=== PATIENT | male | born 1975 | race Caucasian/White ===

== ENCOUNTER 2016-09-02 22:01 | Emergency (ER) | payer OTHER ==
[~2016-09-02] VITALS: Ht 177.8 cm; Wt 103.5 kg
[~2016-09-02 22:01] MED LIST: PSEU120T11 PO
[2016-09-02 22:04] VITALS: Ht 177.8 cm; Wt 103.5 kg
[2016-09-02] MEDS ORDERED: AZIT500T5 PO (23:54)
[2016-09-03] MEDS ORDERED: AZITHROMYCIN 250 MG TAB PO ONE
--- NOTE | 2016-09-03 00:01 | ERD ---
ER Documentation Chief Complaint Date/Time DATE: 09/02/16 TIME: 23:57 Chief Complaint right ear ache x 2 days HPI This is a 40-year-old male that presents to the ER with right ear pain for the last 2 days. Patient states that pain is dull and constant it is nonradiating. Patient denies any discharge from his ear. He denies any fevers or chills. Patient has a history of recurrent ear infections and has seen a specialist for this. She has not had an ear infection for the last 8 months. Patient states he traveled recently from [place] to [place] and because of weather changes he began to feel ear pain. ROS 12 point review of systems was done, all negative except per HPI. Medications Home Meds Active Scripts Azithromycin* (Azithromycin*) 500 Mg Tablet, 500 MG PO QHS for 4 Days, TAB Prov:HARINI RANDLE 09/02/16 Pseudoephedrine Hcl (Sudafe 12-Hour) 120 Mg Tablet.er, 120 MG PO BID Y for CONGESTION, #20 TAB.SA Prov:MARIA DOLORES KELLER PA-C 12/05/15 Allergies Allergies: Coded Allergies: Penicillins (Verified Allergy, 09/03/16) PMhx/Soc History of Surgery: Yes (left acl sx, torn left pectorus muscle sx) Anesthesia Reaction: No Hx Neurological Disorder: No Hx Respiratory Disorders: No Hx Cardiac Disorders: No Hx Psychiatric Problems: No Hx Miscellaneous Medical Probl: Yes (meningitis) Hx Alcohol Use: Yes (socially) Hx Substance Use: No Hx Tobacco Use: No Smoking Status: Never smoker Physical Exam Vitals Vital Signs Date Time Temp Pulse Resp B/P Pulse Ox O2 Delivery O2 Flow Rate FiO2 09/02/16 22:04 97.3 84 20 137/66 100 Physical Exam GENERAL: The patient is well developed and appropriate for usual state of health , in no apparent distress. HEENT: Atraumatic. Conjunctivae are pink. Pupils equal, round, and reactive to light. Extraocular muscles are grossly intact. Right erythematous tympanic membrane no mastoid tenderness no discharge from canal.. The oropharynx is clear with no erythema or exudates. NECK: C-spine is soft and supple. There is no cervical lymphadenopathy. CHEST: Clear to auscultation bilaterally. There are no rales, wheezes or rhonchi. HEART: Regular rate and rhythm. No murmurs, clicks, rubs or gallops. NEURO: Alert and oriented. Results 24 hrs Current Medications Medications (Trade) Dose Ordered Sig/Amadou Route PRN Reason Start Time Stop Time Status Last Admin Dose Admin Azithromycin (Zithromax) 1,000 mg ONCE ONCE PO 09/03/16 00:00 09/03/16 00:01 DC 09/02/16 23:55 Procedures/MDM This is a 40-year-old male presents to the ER with right ear pain for the last 2 days. Patient does have otitis media. Patient is allergic to penicillins will be sent home with azithromycin. He was given the first dose here and will be sent home with 4 days worth of the antibiotic. He is afebrile and well- appearing. Patient is to follow-up with his primary care doctor within 1-2 days or return to ER sooner if symptoms worsen. My medical decision making was discussed with the patient he understands and agrees with plan. Departure Diagnosis: Primary Impression: Otitis media Condition: Stable Patient Instructions: Otitis Media, Abx Tx (Adult) Additional Instructions: Call your primary care doctor TOMORROW for an appointment during the next 1-2 days.See the doctor sooner or return here if your condition worsens before your appointment time. HARINI RANDLE Sep 03, 2016 00:01
[2016-09-03 00:26] VITALS: BP 125/84; PULSE 70; RESP 20; TEMP 98.6
== END 2016-09-03 00:15 | disposition home or self-care (01) ==
LOC: FTE 22:01
DX: H66.91 Otitis media, unspecified, right ear (principal)
CPT/HCPCS: 99283

== ENCOUNTER 2016-09-16 17:06 | Emergency (ER) | payer OTHER ==
[~2016-09-16] VITALS: Ht 157.5 cm; Wt 102.5 kg
[~2016-09-16 17:06] MED LIST changes: +AZIT500T5 PO
[2016-09-16 17:25] VITALS: Ht 157.5 cm; Wt 102.5 kg
[2016-09-16] MEDS ORDERED: OFLO5DRO7 RIGHT EAR (17:48)
[2016-09-16] MEDS ORDERED: CIPR500T4 PO (17:48)
--- NOTE | 2016-09-16 18:28 | ERD ---
ER Documentation Chief Complaint Date/Time DATE: 09/16/16 TIME: 18:26 Chief Complaint Complains HPI This is a 40-year-old male presents to the ER with right ear pain. She states that he went on an airplane that his ear began to hurt again. Patient has a past medical history of recurrent ear infections. Patient denies any fevers or chills. He denies any hearing loss or any tinnitus. ROS 12 point review of systems was done, all negative except per HPI. Medications Home Meds Active Scripts Ofloxacin Otic (Ofloxacin Otic) 5 Ml Drops, 10 DROP RIGHT EAR QHS for 7 Days, # 1 BOTTLE Prov:RAZIAHARINI Griffith 09/16/16 Ciprofloxacin Hcl* (Ciprofloxacin Hcl*) 500 Mg Tablet, 500 MG PO BID for 10 Days , TAB Prov:HARINI RANDLE C 09/16/16 Azithromycin* (Azithromycin*) 500 Mg Tablet, 500 MG PO QHS for 4 Days, TAB Prov:HARINI RANDLE C 09/02/16 Pseudoephedrine Hcl (Sudafe 12-Hour) 120 Mg Tablet.er, 120 MG PO BID Y for CONGESTION, #20 TAB.SA Prov:MARIA DOLORES KELLER PA-C 12/05/15 Allergies Allergies: Coded Allergies: Penicillins (Verified Allergy, Unknown, 09/03/16) PMhx/Soc History of Surgery: Yes (left acl sx, torn left pectorus muscle sx) Anesthesia Reaction: No Hx Neurological Disorder: No Hx Respiratory Disorders: No Hx Cardiac Disorders: No Hx Psychiatric Problems: No Hx Miscellaneous Medical Probl: Yes (meningitis) Hx Alcohol Use: Yes (socially) Hx Substance Use: No Hx Tobacco Use: No Physical Exam Vitals Vital Signs Date Time Temp Pulse Resp B/P Pulse Ox O2 Delivery O2 Flow Rate FiO2 09/16/16 17:25 98.5 72 20 147/89 98 Physical Exam GENERAL: The patient is well developed and appropriate for usual state of health , in no apparent distress. HEENT: Atraumatic. Right erythematous tympanic membrane with discharge. . The oropharynx is clear with no erythema or exudates. CHEST: Clear to auscultation bilaterally. There are no rales, wheezes or rhonchi. HEART: Regular rate and rhythm. No murmurs, clicks, rubs or gallops. EXTREMITIES: Full range of motion. Grossly neurovascularly intact. NEURO: Alert and oriented. Procedures/MDM This is a 40-year-old male presents to the ER with right ear pain. Patient does appear to have otitis externa. Patient was recently on azithromycin. He'll be sent home with Cipro and with Ciprodex. Patient's vital signs are stable he's afebrile and well-appearing. Patient was advised to see an ENT specialist as soon as possible. Patient needs to follow-up with his primary care doctor within 1-2 days or return to ER sooner symptoms worsen. My medical decision making was shared with the patient he understands and agrees with plan. Departure Diagnosis: Primary Impression: Otitis externa Condition: Stable Patient Instructions: External Ear Infection (Adult) Additional Instructions: Call your primary care doctor TOMORROW for an appointment during the next 1-2 days.See the doctor sooner or return here if your condition worsens before your appointment time. HARINI RANDLE Sep 16, 2016 18:28
== END 2016-09-16 19:34 | disposition home or self-care (01) ==
LOC: E/R 17:06
DX: H60.91 Unspecified otitis externa, right ear (principal)
CPT/HCPCS: 99283

== ENCOUNTER 2016-10-02 14:21 | Emergency (ER) | payer OTHER ==
[~2016-10-02] VITALS: Ht 182.9 cm; Wt 110.0 kg
[~2016-10-02 14:21] MED LIST changes: +CIPR500T4 PO; +OFLO5DRO7 RIGHT EAR
[2016-10-02 14:25] VITALS: Ht 182.9 cm; Wt 110.0 kg
[2016-10-02] MEDS ORDERED: CETI10CA PO (15:37)
[2016-10-02] MEDS ORDERED: CIPR500T4 PO (15:37)
--- NOTE | 2016-10-03 16:35 | ERD ---
ER Documentation Chief Complaint Date/Time DATE: 10/03/16 TIME: 16:29 Chief Complaint r ear pain with infection HPI This is a 40-year-old male who presents the ER with right ear pain 2 days. Patient has history of recurrent otitis media and has been seeing an ENT specialist. Was recently on Cipro for acute otitis media states this improved symptoms however since being off the medication his symptoms have returned. No drainage from ear. No muffled hearing. No swelling. No sore throat or difficulty swallowing. No cough, difficulty breathing or shortness of breath. No wheezing. Patient reports some nasal congestion. ROS All systems reviewed and are negative except as per history of present illness. Medications Home Meds Active Scripts Cetirizine Hcl* (Zyrtec*) 10 Mg Capsule, 10 MG PO DAILY, #10 TAB.CHEW Prov:CADENCE JAVIER NP 10/02/16 Ciprofloxacin Hcl* (Ciprofloxacin Hcl*) 500 Mg Tablet, 500 MG PO BID for 10 Days , TAB Prov:CADENCE JAVIER NP 10/02/16 Ofloxacin Otic (Ofloxacin Otic) 5 Ml Drops, 10 DROP RIGHT EAR QHS for 7 Days, # 1 BOTTLE Prov:HARINI RANDLE 09/16/16 Ciprofloxacin Hcl* (Ciprofloxacin Hcl*) 500 Mg Tablet, 500 MG PO BID for 10 Days , TAB Prov:HARINI RANDLE 09/16/16 Azithromycin* (Azithromycin*) 500 Mg Tablet, 500 MG PO QHS for 4 Days, TAB Prov:HARINI RANDLE 09/02/16 Pseudoephedrine Hcl (Sudafe 12-Hour) 120 Mg Tablet.er, 120 MG PO BID Y for CONGESTION, #20 TAB.SA Prov:MARIA DOLORES KELLER PA-C 12/05/15 Allergies Allergies: Coded Allergies: Penicillins (Verified Allergy, Unknown, 09/03/16) PMhx/Soc History of Surgery: Yes (left acl sx, torn left pectorus muscle sx) Anesthesia Reaction: No Hx Neurological Disorder: No Hx Respiratory Disorders: No Hx Cardiac Disorders: No Hx Psychiatric Problems: No Hx Miscellaneous Medical Probl: Yes (meningitis) Hx Alcohol Use: Yes (socially) Hx Substance Use: No Hx Tobacco Use: No Physical Exam Vitals Vital Signs Date Time Temp Pulse Resp B/P Pulse Ox O2 Delivery O2 Flow Rate FiO2 10/02/16 14:25 97.6 74 18 159/83 98 Physical Exam Const: No acute distress, alert Head: Atraumatic Eyes: Normal Conjunctiva ENT: Normal External Ears, Nose and Mouth. No erythema or exudate to posterior pharynx. Right ear canal erythematous without bulging of tympanic membrane. Left ear canal and tympanic membrane normal. Neck: Full range of motion..~ No meningismus. No lymphadenopathy Resp: Clear to auscultation bilaterally. No wheezing, rhonchi or crackles Cardio: Regular rate and rhythm, no murmurs Abd: Soft, non tender, non distended. Normal bowel sounds Skin: No petechiae or rashes Back: No midline or flank tenderness Ext: No cyanosis, or edema Neur: Awake and alert Psych: Normal Mood and Affect Procedures/MDM Patient was seen in rapid medical examination MDM: This is a 40-year-old male who presents emergency department for right ear pain 2 days. Patient has history of recurrent otitis media. Patient states last time he had an infection he was placed on Cipro which did improve his symptoms. Discussed at length with patient that he may or may not have an actual ear infection. Patient states he does have some nasal congestion. Vital signs remained stable. Patient appears calm and comfortable throughout visit. No signs or symptoms of respiratory distress. Patient is talking in complete sentences. No difficulty swallowing or drooling. Low suspicion for mastoiditis. Patient has acute otitis media versus allergic rhinitis. Patient is appropriate for outpatient management will be given prescription for Cipro and Zyrtec. Instructed patient to follow-up with ENT specialist as soon as possible. Return to ED for any high fever, chest pain, difficulty breathing , shortness breath, wheezing, vomiting, diarrhea, abdominal pain or any new or worsening symptoms. Patient verbalizes understanding. All questions answered at discharge. Departure Diagnosis: Primary Impression: Right ear pain Condition: Stable Patient Instructions: Common Middle Ear Problems Referrals: COMMUNITY CLINICS YOU HAVE RECEIVED A MEDICAL SCREENING EXAM AND THE RESULTS INDICATE THAT YOU DO NOT HAVE A CONDITION THAT REQUIRES URGENT TREATMENT IN THE EMERGENCY DEPARTMENT. FURTHER EVALUATION AND TREATMENT OF YOUR CONDITION CAN WAIT UNTIL YOU ARE SEEN IN YOUR DOCTORS OFFICE WITHIN THE NEXT 1-2 DAYS. IT IS YOUR RESPONSIBILITY TO MAKE AN APPOINTMENT FOR FOLOW-UP CARE. IF YOU HAVE A PRIMARY DOCTOR --you should call your primary doctor and schedule an appointment IF YOU DO NOT HAVE A PRIMARY DOCTOR YOU CAN CALL OUR PHYSICIAN REFERRAL HOTLINE AT IF YOU CAN NOT AFFORD TO SEE A PHYSICIAN YOU CAN CHOSE FROM THE FOLLOWING [facility] [address] [facility] [address] [facility] [address] [facility] [address] [facility] [address] [facility]. [facility] [address] [facility] YOU HAVE RECEIVED A MEDICAL SCREENING EXAM AND THE RESULTS INDICATE THAT YOU DO NOT HAVE A CONDITION THAT REQUIRES URGENT TREATMENT IN THE EMERGENCY DEPARTMENT. FURTHER EVALUATION AND TREATMENT OF YOUR CONDITION CAN WAIT UNTIL YOU ARE SEEN IN YOUR DOCTORS OFFICE WITHIN THE NEXT 1-2 DAYS. IT IS YOUR RESPONSIBILITY TO MAKE AN APPOINTMENT FOR FOLOW-UP CARE. IF YOU HAVE A PRIMARY DOCTOR --you should call your primary doctor and schedule and appointment IF YOU DO NOT HAVE A PRIMARY DOCTOR YOU CAN CALL OUR PHYSICIAN REFERRAL HOTLINE AT . IF YOU CAN NOT AFFORD TO SEE A PHYSICIAN YOU CAN CHOSE FROM THE FOLLOWING [facility]: [facility] [address] [place] [address] [facility] [address] [place] [address] [facility] [address] [place] [address] Additional Instructions: Call your primary care doctor TOMORROW for an appointment during the next 2-3 days.See the doctor sooner or return here if your condition worsens before your appointment time. CADENCE JAVIER NP Oct 03, 2016 16:35
== END 2016-10-02 15:39 | disposition home or self-care (01) ==
LOC: E/R 14:21
DX: H92.01 Otalgia, right ear (principal)
CPT/HCPCS: 99283

== ENCOUNTER 2016-11-12 09:23 | Emergency (ER) | payer OTHER ==
[~2016-11-12] VITALS: Ht 182.9 cm; Wt 100.0 kg
[~2016-11-12 09:23] MED LIST changes: +CETI10CA PO
[2016-11-12 09:29] VITALS: Ht 182.9 cm; Wt 100.0 kg
[2016-11-12] MEDS ORDERED: AMO500 PO (09:58)
--- NOTE | 2016-11-12 09:58 | ERD ---
ER Documentation Chief Complaint Date/Time DATE: 11/12/16 TIME: 09:56 Chief Complaint pt bib self with c/o right ear pain, x a few days HPI This is a 40-year-old male who presents to the emergency room for evaluation of right-sided ear pain. This patient does state that he has had multiple ear infections in the past, does state that he has followed up with death clearance coordinator who stated he has a deformity in his eustachian tube. This patient does fly frequently and states that he recently got off a flight 72 hours ago and is having pain in his right ear which was similar to previous ear infections. Patient denies any fever, chills nausea or vomiting ROS All systems reviewed and are negative except as per history of present illness. Medications Home Meds Active Scripts Cetirizine Hcl* (Zyrtec*) 10 Mg Capsule, 10 MG PO DAILY, #10 TAB.CHEW Prov:CADENCE JAVIER NP 10/02/16 Ciprofloxacin Hcl* (Ciprofloxacin Hcl*) 500 Mg Tablet, 500 MG PO BID for 10 Days , TAB Prov:CADENCE JAVIER NP 10/02/16 Ofloxacin Otic (Ofloxacin Otic) 5 Ml Drops, 10 DROP RIGHT EAR QHS for 7 Days, # 1 BOTTLE Prov:HARINI RANDLE 09/16/16 Ciprofloxacin Hcl* (Ciprofloxacin Hcl*) 500 Mg Tablet, 500 MG PO BID for 10 Days , TAB Prov:HARINI RANDLE 09/16/16 Azithromycin* (Azithromycin*) 500 Mg Tablet, 500 MG PO QHS for 4 Days, TAB Prov:HARINI RANDLE 09/02/16 Pseudoephedrine Hcl (Sudafe 12-Hour) 120 Mg Tablet.er, 120 MG PO BID Y for CONGESTION, #20 TAB.SA Prov:MARIA DOLORES KELLER PA-C 12/05/15 Allergies Allergies: Coded Allergies: Penicillins (Verified Allergy, Unknown, 09/03/16) PMhx/Soc History of Surgery: Yes (left acl sx, torn left pectorus muscle sx) Anesthesia Reaction: No Hx Neurological Disorder: No Hx Respiratory Disorders: No Hx Cardiac Disorders: No Hx Psychiatric Problems: No Hx Miscellaneous Medical Probl: Yes (meningitis) Hx Alcohol Use: Yes (socially) Hx Substance Use: No Hx Tobacco Use: No Physical Exam Vitals Vital Signs Date Time Temp Pulse Resp B/P Pulse Ox O2 Delivery O2 Flow Rate FiO2 11/12/16 09:29 98.9 82 18 121/72 98 Physical Exam Const: No acute distress Head: Atraumatic Eyes: Normal Conjunctiva ENT: Right tympanic membrane erythematous and bulging normal External Ears, Nose and Mouth. Neck: Full range of motion..~ No meningismus. Resp: Clear to auscultation bilaterally Cardio: Regular rate and rhythm, no murmurs Abd: Soft, non tender, non distended. Normal bowel sounds Skin: No petechiae or rashes Back: No midline or flank tenderness Ext: No cyanosis, or edema Neur: Awake and alert Psych: Normal Mood and Affect Procedures/MDM This 40-year-old male presents to the emergency room for evaluation of ear pain. This patient has multiple ear infections in the past, does have a abnormality of his eustachian tube which does predispose him to ear infections. He states his pain today's feel similar to previous infections. Patient does state that he has follow-up with an ENT years ago, however has not seen an ENT doctor since. The patient denies any fevers or chills associated with this. When I evaluated him he did have a erythematous and bulging right tympanic membrane consistent with acute otitis media. Given this patient's eustachian tube abnormality I did give this patient Decadron to decrease inflammation of the eustachian to to help promote drainage. The patient will be given a prescription for amoxicillin. He does state that he is not allergic to penicillin and has taken amoxicillin in the past. Departure Diagnosis: Primary Impression: Acute otitis media Condition: Stable NILSA MERRILL DO Nov 12, 2016 09:57
[2016-11-12] MEDS ORDERED: DEXAMETHASONE 10 MG/ML 1 ML INJ PO ONE (10:00)
== END 2016-11-12 10:10 | disposition home or self-care (01) ==
LOC: FTE 09:23
DX: H66.91 Otitis media, unspecified, right ear (principal)
CPT/HCPCS: J1100; Z7502; 99283